=== PATIENT | male | born 1985 | race African-American/Black ===

== ENCOUNTER 2017-12-10 19:41 | Emergency (ER) | payer OTHER ==
[~2017-12-10] VITALS: Ht 177.8 cm; Wt 76.0 kg
[~2017-12-10 19:41] MED LIST: NOHOMEMEDS
[2017-12-10 21:29] LABS: HEMATOCRIT 26.5 % (38.0-50.0); HEMOGLOBIN 9.6 G/DL (12.5-16.6); MCH 29.6 PG (29.0-34.0); MCHC 36.2 G/DL (30.0-36.0); MCV 81.8 FL (86-99); NRBC (%) 1.9 /100 WBC (0-0); PLATELET COUNT 404 K/uL (156-360); RBC DIS.WIDTH-SD 59.3 % (39-53); RED BLOOD COUNT 3.24 M/uL (4.00-5.50); WHITE BLOOD COUNT 12.9 K/uL (4.1-10.2)
[2017-12-10 21:43] LABS: IMM.RETIC FRACTION 34.1 % (3-19); RETIC HGB EQUIVALENT 34.1 (28-36); RETICULOCYTE COUNT 10.6 % (0.5-1.8)
[2017-12-10 21:50] LABS: CHLORIDE 102 mEq/L (99-109); SODIUM 136 mEq/L (136-147)
[2017-12-10 21:51] LABS: GLUCOSE 77 mg/dL (70-99)
[2017-12-10 21:55] LABS: CREATININE 0.9 mg/dL (0.6-1.3); GFR ESTIMATE (CALCULATED) > 59 mL/min/ (58.99-99999)
[2017-12-10 21:56] LABS: UREA NITROGEN (BUN) 9 mg/dL (9-23)
[2017-12-10 22:22] LABS: PLAT.SUFFICIENCY INCREASED
[2017-12-10] MEDS ORDERED: AUGMENTIN875 MG PO (22:31)
[2017-12-10 23:00] VITALS: BP 153/82
== END 2017-12-10 23:13 ==
LOC: EME → EDBD 19:41 → EME 19:41
PROVIDERS: Emergency Medicine
PROC: 0HQ1XZZ Repair Face Skin, External Approach (ICD-10-PCS; principal; 2017-12-10)
DX: S01.412A Laceration without foreign body of left cheek and temporomandibular area, initial encounter (principal); X99.9XXA Assault by unspecified sharp object, initial encounter; Y92.143 Cell of prison as the place of occurrence of the external cause; D57.1 Sickle-cell disease without crisis; Z87.891 Personal history of nicotine dependence
CPT/HCPCS: 80048; 85027; 85046; 99281; 99284; J3010; J7030